=== PATIENT | male | born 1975 | race African-American/Black ===

== ENCOUNTER 2019-09-17 05:41 | Emergency (ER) | payer BC, OTHER ==
[~2019-09-17] VITALS: Ht 167.6 cm; Wt 95.4 kg
[2019-09-17 07:03] VITALS: BP 163/103
--- NOTE | 2019-09-17 08:31 | PHYS DOC ---
Past Medical History Past Medical History: No Pertinent History Past Surgical History: No Surgical History Additional Information: Reports 3 cigs/day Alcohol Use: None Drug Use: None Adult General Chief Complaint Chief Complaint: EARACHE/EAR PAIN HPI HPI Patient is a 43 year old patient without history of medical problem who presents with complaint of left ear plugging. Patient complaining of left ear plugging and moderate pain since this morning without recent URI symptoms and fever and chills and history of the same problem. Patient complaining of decrease of hearing ear. Review of Systems Review of Systems Constitutional: Denies fever or chills [] Eyes: Denies change in visual acuity, redness, or eye pain [] HENT: Denies nasal congestion or sore throat, reports ear pain Respiratory: Denies cough or shortness of breath [] Cardiovascular: No additional information not addressed in HPI [] GI: Denies abdominal pain, nausea, vomiting, bloody stools or diarrhea [] : Denies dysuria or hematuria [] Musculoskeletal: Denies back pain or joint pain [] Integument: Denies rash or skin lesions [] Neurologic: Denies headache, focal weakness or sensory changes [] Endocrine: Denies polyuria or polydipsia [] All other systems were reviewed and found to be within normal limits, except as documented in this note. Allergies Allergies Allergies Coded Allergies Type Severity Reaction Last Updated Verified No Known Drug Allergies 09/17/19 No Physical Exam Physical Exam Constitutional: Well developed, well nourished, no acute distress, non-toxic appearance. [] HENT: Normocephalic, atraumatic, right ear canal with small amount of wax normal tympanic membrane, left earcanal filled with wax, unable to see tympanic membrane, oropharynx moist, no oral exudates, nose normal. [] Eyes: PERRLA, EOMI, conjunctiva normal, no discharge. [] Neck: Normal range of motion, no tenderness, supple, no stridor. [] Cardiovascular:Heart rate regular rhythm, no murmur [] Neurologic: Alert and oriented X 3, normal motor function, normal sensory function, no focal deficits noted. [] Psychologic: Affect normal, judgement normal, mood normal. [] Current Patient Data Vital Signs Vital Signs Date Time Temp Pulse Resp B/P (MAP) Pulse Ox O2 Delivery O2 Flow Rate FiO2 09/17/19 07:03 98.5 75 16 163/103 (123) 98 Room Air 98.5 EKG EKG [] Radiology/Procedures Radiology/Procedures [] Course & Med Decision Making Course & Med Decision Making Evaluation of patient in ER showed 43-year-old male patient with complaining of plugging the ear. Patient had a wax impaction that removed with ear irrigation by RN and tympanic membranes did not have any sign of infection. Dragon Disclaimer Dragon Disclaimer This electronic medical record was generated, in whole or in part, using a voice recognition dictation system. Departure Departure Impression: Primary Impression: Impacted ear wax Disposition: HOME, SELF-CARE (at 0 [phone]) Condition: IMPROVED Referrals: NO PCP (PCP) Patient Instructions: Cerumen Impaction Additional Instructions: Thank you for visiting [facility]. We appreciate you trusting us with your care. If any additional problems come up don't hesitate to return to visit us. Please follow up with your primary care provider so they can plan ad ditional care if needed and know about the problem that you had. If symptoms worsen come back to the Emergency Department. Any concerning symptoms that start such as chest pain, shortness of air, weakness or numbness on one side of the body, running high fevers or any other concerning symptoms return to the ER. Problem Qualifiers Primary Impression: Impacted ear wax Laterality: left Qualified Codes: H61.22 - Impacted cerumen, left ear DIVINE HARDEN MD Sep 17, 2019 08:31
== END 2019-09-17 08:40 | disposition home or self-care (01) ==
LOC: ER 05:41
DX: H61.22 Impacted cerumen, left ear (principal); F17.210 Nicotine dependence, cigarettes, uncomplicated
CPT/HCPCS: 69209; 99282

== ENCOUNTER 2021-09-17 17:10 | Emergency (ER) | payer BC ==
[~2021-09-17] VITALS: Ht 167.6 cm; Wt 100.5 kg
[2021-09-17 17:11] VITALS: BP 141/72
--- NOTE | 2021-09-17 19:02 | PHYS DOC ---
Past Medical History Past Medical History: No Pertinent History Past Surgical History: No Surgical History Smoking Status: Current Every Day Smoker Alcohol Use: None Drug Use: None General Adult EDM: Chief Complaint: COUGH HPI: HPI: Patient is a 45 year old male who presents with report of headache, malaise, myalgias and fatigue. He denies any fevers but has had chills. He denies cough, dyspnea, chest pain. He denies nausea, vomiting, diarrhea, denies abdominal pain. He has not been vaccinated against COVID-19. He reports that he has been around other unvaccinated people with similar symptoms. Review of Systems: Review of Systems: Constitutional: Denies objectively measured fever, reports chills and myalgias. Eyes: Denies change in visual acuity. [] HENT: He does report mild nasal congestion. Respiratory: Denies cough or shortness of breath. [] Cardiovascular: Denies chest pain or edema. [] GI: Denies abdominal pain, nausea, vomiting, or diarrhea : Denies urinary symptoms Musculoskeletal: Reports diffuse myalgias. Denies joint pain or swelling. Integument: Denies rash. [] Neurologic: Reports mild headache, denies focal weakness, numbness or tingling. Denies dizziness or syncope. Endocrine: Denies polyuria or polydipsia. [] Lymphatic: Denies swollen glands. [] Psychiatric: Denies depression or anxiety. [] Heart Score: C/O Chest Pain: No Risk Factors: Risk Factors: DM, Current or recent (<one month) smoker, HTN, HLP, family history of CAD, obesity. Risk Scores: Score 0 - 3: 2.5% MACE over next 6 weeks - Discharge Home Score 4 - 6: 20.3% MACE over next 6 weeks - Admit for Clinical Observation Score 7 - 10: 72.7% MACE over next 6 weeks - Early Invasive Strategies Allergies: Allergies: Allergies Coded Allergies Type Severity Reaction Last Updated Verified No Known Drug Allergies 09/17/19 No Physical Exam: PE: Constitutional: Well developed, well nourished, no acute distress, non-toxic appearance. [] HENT: Normocephalic, atraumatic, oropharynx is patent and clear, mucous membranes are moist. Eyes: Activa normal, sclera are clear Neck: Normal range of motion, no tenderness, supple, no stridor. Achy midline. Cardiovascular:Heart rate regular rhythm, no peripheral edema. +2 radial and +2 posterior tibial pulses bilaterally Lungs & Thorax: Bilateral breath sounds clear to auscultation [] Abdomen: Abdomen soft, nondistended, nontender to palpation Skin: Warm, dry, no erythema, no rash. [] Back: No tenderness, no CVA tenderness. [] Extremities: No tenderness, no cyanosis, no clubbing, ROM intact, no edema. No calf tenderness. Neurologic: Alert and oriented X 3, normal motor function, normal sensory function, no focal deficits noted. [] Psychologic: Affect normal, judgement normal, mood normal. [] Current Patient Data: Vital Signs: Vital Signs Date Time Temp Pulse Resp B/P (MAP) Pulse Ox O2 Delivery O2 Flow Rate FiO2 09/17/21 17:11 99.2 83 16 141/72 (95) 97 Room Air 99.2 EKG: EKG: [] Radiology/Procedures: Radiology/Procedures: [] Course & Med Decision Making: Course & Med Decision Making Pertinent Labs and Imaging studies reviewed. (See chart for details) I discussed the findings, differential diagnosis and plan of care with the patient. He is hemodynamically stable, manifest no evidence of distress or hypoxia at this time. There is no indication for admission or further invasive exams. I discussed home care instructions, including care for fevers, making sure he stays hydrated, he is to self isolate, notify all recent contacts. He may not return to work until self-isolation is over. Return precautions are given. He verbalizes understanding. Heydi Disclaimer: Heydi Disclaimer: This electronic medical record was generated, in whole or in part, using a voice recognition dictation system. Departure Departure Impression: Primary Impression: COVID-19 Disposition: HOME / SELF CARE / HOMELESS Condition: STABLE Referrals: CACHORRO FLOWERS MD (PCP) Additional Instructions: You have been tested for or diagnosed with COVID-19. It is an infection caused by a new type of coronavirus. COVID-19 will cause cold-like or mild flu symptoms in most. It can cause more severe symptoms like problems breathing in some. There is no treatment for COVID-19. The body will clear the infection over time. Self-care will help to ease discomfort. Steps to Take: Self-Care Rest as needed. Healthy habits may help you feel better. Steps include: Choose healthy foods including fruits and vegetables. Drink water throughout the day. Get plenty of sleep each night. If you smoke, try to quit. It may ease breathing. Avoid alcohol. Keep Others Healthy The virus can spread to others. Droplets are released every time you sneeze or cough. The droplets can get into the mouth, nose, or eyes of people near you and lead to infection. To lower the chances of spreading COVID-19 to others: Stay at home until your doctor has said it is safe to leave. If you tested positive this will mean staying isolated until both of the following are true: At least 7 days have passed since the start of illness. You are free of fever for at least 72 hours without the use of medicine. During this time: - Avoid public areas, events, or transportation. Do not return to work or school until your doctor has said it is safe to do so. - Call ahead if you need to go to a medical center. Let them know you may have COVID-19. It will help them guide you where to go. They may also ask you to wear a facemask when you come to the office. - If you call for emergency medical services, let them know you may have COVID- 19. While at home: - Try to avoid close contact with others. Stay about 6 feet away. - If possible, spend most of your time in a separate room from others. - Use a face mask if you will be in close contact with others such as sharing a room or vehicle. - Have someone wipe down common surfaces in the home. Use household electro optics engineer every day on areas like doorknobs, counters, or sinks. - Cough or sneeze into a tissue. Throw the tissue away right after use. If a tissue is not available, cough or sneeze into your elbow. - Wash your hands often. Wash them after sneezing or coughing. Use soap and water and wash for at least 20 seconds. Alcohol based hand mandrel cleaner can be used if soap and water is not available. - Do not prepare food for others. Avoid sharing personal items like forks, s poons, or toothbrushes. - Avoid close contact with pets while you are sick. There is no evidence of the virus passing to pets. This is a safety step until more is known about this virus. Isolation can be frustrating. Social interaction can help. Keep in touch with friends and family through phone and tech options. You can still interact with others in your home, just keep a safe distance of about 6 feet. Follow-up: Your doctors office will check in with you to see if there are any changes in your health. You may be asked to keep track of symptoms to share with them. They will also let you know when you are clear to be in public again. Problems to Look Out For: Contact your doctor if your recovery is not going as you expect. Get emergency care if you have problems such as: - Trouble breathing - Nonstop chest pain or pressure - Changes in awareness, confusion, or problems waking - Lips or face have bluish color - Worsening of symptoms If you think you have an emergency, call for emergency medical services right away. As taken from [facility] You have been diagnosed with COVID-19 infection. Please self isolate/quarantine at home. You will need to do this for the next 10 days, if you are still having fevers and chills are symptomatic after 10 days, you will need to wait at least 48 hours until you are fever free without the use of Tylenol or ibuprofen. In the meantime, stay well-hydrated, drink plenty of fluids. Please get plenty of rest. You may take Tylenol and/or ibuprofen for pain or fever symptoms. Return to the ER for shortness of breath, chest pain, if your oxygen level drops below 90%, if you develop any evidence of dehydration or any other concerns. Please notify any contacts that you have had in the last 14 days notify them of your positive Covid status. You may also not return to work activities while you have COVID-19 infection. I recommend that you seek vaccination in 90 days after your Covid symptoms and Covid infection has resolved VIKY,BERTHA [place] DO Sep 17, 2021 19:02
[2021-09-17] MEDS ORDERED: IBUPROFEN 400 MG TABLET. PO ONE (19:15)
[2021-09-17 20:11] LABS: INFLUENZA A PATIENT NEGATIVE (NEGATIVE); INFLUENZA B PATIENT NEGATIVE (NEGATIVE)
== END 2021-09-17 20:45 | disposition home or self-care (01) ==
LOC: ER 17:10
DX: U07.1 COVID-19 (principal); F17.200 Nicotine dependence, unspecified, uncomplicated
CPT/HCPCS: 87426; 87804; 99283